=== PATIENT | male | born 1960 | race Caucasian/White ===

== ENCOUNTER 2017-03-05 13:27 | Emergency (ER) | payer OTHER ==
[2017-03-05 13:44] VITALS: RESP 18; TEMP 98.3
--- NOTE | 2017-03-05 14:12 | XR ---
EXAMINATION TYPE: XR ankle complete LT DATE OF EXAM: 03/05/2017 CLINICAL HISTORY: Rolling injury with pain. TECHNIQUE: Frontal, lateral and oblique images of the left ankle are obtained. COMPARISON: None. FINDINGS: There is acute comminuted nondisplaced fracture through the lateral malleolus as there gen ears to be oblique and transverse component. The medial and posterior malleoli are intact. The ankle mortise appears within normal limits. Moderate associated soft tissue swelling laterally is noted. IMPRESSION: There is acute comminuted nondisplaced fracture through the lateral malleolus. (Initial encounter closed type post traumatic fracture)
--- NOTE | 2017-03-05 14:28 | ED ---
Lower Extremity Injury HPI - General Chief Complaint: Extremity Injury, Lower Stated Complaint: L ankle injury Time Seen by Provider: 03/05/17 13:54 Source: patient, RN notes reviewed Mode of arrival: ambulatory Limitations: no limitations - History of Present Illness Initial Comments: 56-year-old male presents emergency Department chief complaint left ankle injury. Patient states he rolled his ankle on Saturday night. Patient states that since sure why he still able to ambulate. Patient complains of swelling. States he had no prior injuries to his left ankle multiple other fractures. Patient currently sees Dr. Gilmore. Denies any paresthesias no proximal leg pain or any knee pain. - Related Data Home Medications Medication Instructions Recorded Confirmed Ibuprofen [Motrin] 800 mg PO Q8HR PRN 12/26/14 03/05/17 Multivit-Min/FA/Lycopen/Lutein 1 tab PO DAILY 03/05/17 03/05/17 [Centrum Silver Men Tablet] Omeprazole 20 mg PO DAILY 03/05/17 03/05/17 Allergies Allergy/AdvReac Type Severity Reaction Status Date / Time No Known Allergies Allergy Verified 03/05/17 13:59 Review of Systems ROS Statement: Those systems with pertinent positive or pertinent negative responses have been documented in the HPI. ROS Other: All systems not noted in ROS Statement are negative. Past Medical History Past Medical History: GERD/Reflux, Hypertension Additional Past Medical History / Comment(s): hiatal hernia, KIDNEY STONES, History of Any Multi-Drug Resistant Organisms: MRSA Date of last positivie culture/infection: 2014 MDRO Source:: leg Past Surgical History: Orthopedic Surgery Additional Past Surgical History / Comment(s): right ankle PINS, right knee DEBRIDMENT, left thumb, BABY FINGER RT HAND SX REPAIRED Past Anesthesia/Blood Transfusion Reactions: No Reported Reaction Additional Past Anesthesia/Blood Transfusion Reaction / Comment(s): VERTIGO Past Psychological History: Anxiety Smoking Status: Current every day smoker Past Alcohol Use History: Daily Past Drug Use History: None Reported - Past Family History Father Family Medical History: Cancer, Myocardial Infarction ([place]) Additional Family Medical History / Comment(s): BLADDER, CARDIAC STENTS THEN CABG Mother Family Medical History: Cancer Additional Family Medical History / Comment(s): HEART VALVE REPAIR, COLON CA General Exam Limitations: no limitations General appearance: alert, in no apparent distress Head exam: Present: atraumatic, normocephalic, normal inspection Respiratory exam: Present: normal lung sounds bilaterally. Absent: respiratory distress, wheezes, rales, rhonchi, stridor Cardiovascular Exam: Present: regular rate, normal rhythm, normal heart sounds. Absent: systolic murmur, diastolic murmur, rubs, gallop, clicks Extremities exam: Present: other (Left ankle there is moderate lateral malleolus tenderness moderate swelling neurovascular intact some ecchymosis noted) Neurological exam: Present: alert, oriented X3, CN II-XII intact, reflexes normal. Absent: motor sensory deficit Course Vital Signs 03/05/17 13:42 Temperature 98.3 F Pulse Rate 74 Respiratory 18 Rate Blood Pressure 192/99 O2 Sat by Pulse 97 Oximetry Procedures - Orthopedic Splinting/Casting Injury #1 Side: left Lower Extremity Injury Location: ankle Lower Extremity Immobilizer: posterior splint (Short leg neurovascular intact before and after procedures) Other Orthopedic Equipment: crutches Medical Decision Making - Medical Decision Making 56-year-old male presented emergency tomorrow for fall, left ankle injury. Patient has acute lateral malleolus fracture. He was splinted and will follow- up with his orthopedic doctor Dr. Gilmore. Disposition Clinical Impression: Closed left ankle fracture Disposition: HOME SELF-CARE Condition: Stable Instructions: Ankle Fracture (ED) Additional Instructions: Please return to the Emergency Department if symptoms worsen or any other concerns. Referrals: Jenna Gooden MD [Primary Care Provider] - 1-2 days Ge Gilmore DO [Doctor of Osteopathic Medicine] - 1-2 days Time of Disposition: 14:28
[2017-03-05 15:29] VITALS: BP 176/102; PULSE 71
== END 2017-03-05 15:28 | disposition home or self-care (01) ==
LOC: EC 13:27
DX: S82.62XA Displaced fracture of lateral malleolus of left fibula, initial encounter for closed fracture (principal); K21.9 Gastro-esophageal reflux disease without esophagitis; F17.200 Nicotine dependence, unspecified, uncomplicated; Z98.890 Other specified postprocedural states; Z79.899 Other long term (current) drug therapy; X50.9XXA Other and unspecified overexertion or strenuous movements or postures, initial encounter
CPT/HCPCS: 29515; 99283

== ENCOUNTER 2019-07-02 19:26 | Emergency (ER) | payer OTHER ==
[2019-07-02 19:35] VITALS: TEMP 98.4
--- NOTE | 2019-07-02 20:06 | ED ---
SOB HPI - General Chief Complaint: Shortness of Breath Stated Complaint: VANNA, Facial numbness, chest pressure Time Seen by Provider: 07/02/19 20:00 Source: patient, RN notes reviewed, old records reviewed Mode of arrival: ambulatory Limitations: no limitations - History of Present Illness Initial Comments: This is a 59-year-old male here for evaluation patient has a fevers or shortness of breath history of smoking with no formal diagnosis of COPD. Patient admitted to some shortness with anxiety prior to arrival with numbness and tingling of his hands. States SYMPTOMS are resolved he does have history of high blood pressure history of smoking no history of heart evaluation or no significant history of heart disease. Patient has no chest pain now had pain earlier jimmy LOMBARDI Complaint: shortness of breath, cough -: minutes(s) Severity: moderate Severity scale (1-10): 4 Quality: other (no pain) Consistency: constant, now resolved Improves With: nothing Worsens With: nothing Known History Of: COPD Context: recent URI Associated Symptoms: cough, sputum production Treatments Prior to Arrival: none - Related Data Home Medications Medication Instructions Recorded Confirmed Ibuprofen [Motrin] 800 mg PO Q8HR PRN 12/26/14 03/05/17 Multivit-Min/FA/Lycopen/Lutein 1 tab PO DAILY 03/05/17 03/05/17 [Centrum Silver Men Tablet] Omeprazole 20 mg PO DAILY 03/05/17 03/05/17 Previous Rx's Medication Instructions Recorded Albuterol Sulfate [Proair Hfa] 1 - 2 puff INHALATION Q4H PRN #1 07/02/19 inhaler Azithromycin [Zithromax Z-pack] 0 mg PO DIRECTED #1 pack 07/02/19 predniSONE 50 mg PO DAILY #5 tab 07/02/19 Allergies Allergy/AdvReac Type Severity Reaction Status Date / Time No Known Allergies Allergy Verified 07/02/19 19:32 Review of Systems ROS Statement: Those systems with pertinent positive or pertinent negative responses have been documented in the HPI. ROS Other: All systems not noted in ROS Statement are negative. Past Medical History Past Medical History: GERD/Reflux, Hypertension Additional Past Medical History / Comment(s): hiatal hernia, KIDNEY STONES, History of Any Multi-Drug Resistant Organisms: MRSA Date of last positivie culture/infection: 2014 MDRO Source:: leg Past Surgical History: Orthopedic Surgery Additional Past Surgical History / Comment(s): right ankle PINS, right knee DEBRIDMENT, left thumb, BABY FINGER RT HAND SX REPAIRED Past Anesthesia/Blood Transfusion Reactions: No Reported Reaction Additional Past Anesthesia/Blood Transfusion Reaction / Comment(s): VERTIGO Past Psychological History: Anxiety Smoking Status: Current every day smoker Past Alcohol Use History: Daily Past Drug Use History: None Reported - Past Family History Father Family Medical History: Cancer, Myocardial Infarction ([place]) Additional Family Medical History / Comment(s): BLADDER, CARDIAC STENTS THEN CABG Mother Family Medical History: Cancer Additional Family Medical History / Comment(s): HEART VALVE REPAIR, COLON CA General Exam Limitations: no limitations General appearance: alert, in no apparent distress Head exam: Present: atraumatic, normocephalic, normal inspection Eye exam: Present: normal appearance, PERRL, EOMI. Absent: scleral icterus, conjunctival injection, periorbital swelling ENT exam: Present: normal exam, mucous membranes moist Neck exam: Present: normal inspection. Absent: tenderness, meningismus, lymphadenopathy Respiratory exam: Present: normal lung sounds bilaterally, wheezes. Absent: respiratory distress, rales, rhonchi, stridor Cardiovascular Exam: Present: regular rate, normal rhythm, normal heart sounds. Absent: systolic murmur, diastolic murmur, rubs, gallop, clicks GI/Abdominal exam: Present: soft, normal bowel sounds. Absent: distended, tenderness, guarding, rebound, rigid Extremities exam: Present: normal inspection, full ROM, normal capillary refill. Absent: tenderness, pedal edema, joint swelling, calf tenderness Back exam: Present: normal inspection Neurological exam: Present: alert, oriented X3, CN II-XII intact Psychiatric exam: Present: normal affect, normal mood Skin exam: Present: warm, dry, intact, normal color. Absent: rash Course Vital Signs 07/02/19 07/02/19 07/02/19 19:30 21:04 21:26 Temperature 98.4 F Pulse Rate 79 71 73 Respiratory 20 18 18 Rate Blood Pressure 143/81 O2 Sat by Pulse 99 Oximetry - Reevaluation(s) Reevaluation #1: 07/02/19 21:58 Medical record is reviewed Reevaluation #2: 07/02/19 22:00 His breathing is significantly improved feels comfortable discharge Medical Decision Making - Medical Decision Making 59 mL the ER for earlier for evaluation of anxiety episode shortness of breath is improved here in the ER with no distress. Patient is a smoker encouraged to quit smoking x-rays negative lab work is normal with EKG is normal. Patient can be discharged home - Lab Data Result diagrams: 07/02/19 19:49 07/02/19 19:49 Lab Results 07/02/19 07/02/19 07/02/19 Range/Units 19:49 19:49 19:49 WBC 5.8 (3.8-10.6) k/uL RBC 4.62 (4.30-5.90) m/uL Hgb 14.5 (13.0-17.5) gm/dL Hct 43.3 (39.0-53.0) % MCV 93.7 (80.0-100.0) fL MCH 31.3 (25.0-35.0) pg MCHC 33.4 (31.0-37.0) g/dL RDW 12.3 (11.5-15.5) % Plt Count 105 L (150-450) k/uL Neutrophils % 54 % Lymphocytes % 34 % Monocytes % 7 % Eosinophils % 2 % Basophils % 0 % Neutrophils # 3.1 (1.3-7.7) k/uL Lymphocytes # 2.0 (1.0-4.8) k/uL Monocytes # 0.4 (0-1.0) k/uL Eosinophils # 0.1 (0-0.7) k/uL Basophils # 0.0 (0-0.2) k/uL PT (9.0-12.0) sec INR (<1.2) APTT (22.0-30.0) sec Sodium 137 (137-145) mmol/L Potassium 3.7 (3.5-5.1) mmol/L Chloride 101 (98-107) mmol/L Carbon Dioxide 25 (22-30) mmol/L Anion Gap 11 mmol/L BUN 14 (9-20) mg/dL Creatinine 0.87 (0.66-1.25) mg/dL Est GFR (CKD-EPI)AfAm >90 (>60 ml/min/1.73 sqM) Est GFR (CKD-EPI)NonAf >90 (>60 ml/min/1.73 sqM) Glucose 81 (74-99) mg/dL Calcium 9.1 (8.4-10.2) mg/dL Magnesium 2.2 (1.6-2.3) mg/dL Total Bilirubin 1.0 (0.2-1.3) mg/dL AST 53 (17-59) U/L ALT 72 (21-72) U/L Alkaline Phosphatase 49 (38-126) U/L Troponin I (0.000-0.034) ng/mL NT-Pro-B Natriuret Pep 112 pg/mL Total Protein 6.9 (6.3-8.2) g/dL Albumin 4.4 (3.5-5.0) g/dL 07/02/19 07/02/19 Range/Units 19:49 19:49 WBC (3.8-10.6) k/uL RBC (4.30-5.90) m/uL Hgb (13.0-17.5) gm/dL Hct (39.0-53.0) % MCV (80.0-100.0) fL MCH (25.0-35.0) pg MCHC (31.0-37.0) g/dL RDW (11.5-15.5) % Plt Count (150-450) k/uL Neutrophils % % Lymphocytes % % Monocytes % % Eosinophils % % Basophils % % Neutrophils # (1.3-7.7) k/uL Lymphocytes # (1.0-4.8) k/uL Monocytes # (0-1.0) k/uL Eosinophils # (0-0.7) k/uL Basophils # (0-0.2) k/uL PT 9.4 (9.0-12.0) sec INR 0.9 (<1.2) APTT 25.2 (22.0-30.0) sec Sodium (137-145) mmol/L Potassium (3.5-5.1) mmol/L Chloride (98-107) mmol/L Carbon Dioxide (22-30) mmol/L Anion Gap mmol/L BUN (9-20) mg/dL Creatinine (0.66-1.25) mg/dL Est GFR (CKD-EPI)AfAm (>60 ml/min/1.73 sqM) Est GFR (CKD-EPI)NonAf (>60 ml/min/1.73 sqM) Glucose (74-99) mg/dL Calcium (8.4-10.2) mg/dL Magnesium (1.6-2.3) mg/dL Total Bilirubin (0.2-1.3) mg/dL AST (17-59) U/L ALT (21-72) U/L Alkaline Phosphatase (38-126) U/L Troponin I <0.012 (0.000-0.034) ng/mL NT-Pro-B Natriuret Pep pg/mL Total Protein (6.3-8.2) g/dL Albumin (3.5-5.0) g/dL - EKG Data -: EKG Interpreted by Me (EKG shows sinus rhythm rate of 72, CT 142 QRS 9 4, QTC 431) - Radiology Data Radiology results: report reviewed (Chest x-rays negative for acute disease), image reviewed Disposition Clinical Impression: Acute exacerbation of chronic obstructive pulmonary disease, Anxiety Disposition: HOME SELF-CARE Condition: Good Instructions (If sedation given, give patient instructions): Acute Bronchitis (ED), Chronic Bronchitis (ED) Prescriptions: predniSONE 50 mg PO DAILY #5 tab Albuterol Sulfate [Proair Hfa] 1 - 2 puff INHALATION Q4H PRN #1 inhaler PRN Reason: Shortness Of Breath Azithromycin [Zithromax Z-pack] 0 mg PO DIRECTED #1 pack Is patient prescribed a controlled substance at d/c from ED?: No Referrals: Jenna Gooden MD [Primary Care Provider] - 1-2 days
[2019-07-02] MEDS ORDERED: IPRATROPIUM 0.5 MG/2.5 ML NEBU INHALATION STA (20:35)
[2019-07-02] MEDS ORDERED: ALBUTEROL NEBULIZED 2.5 MG/3 ML INHALATION STA (20:35)
[2019-07-02] MEDS ORDERED: methylPREDNISolone SOD SUCCI 125 MG/2 ML VIAL IV STA (20:35)
[2019-07-02 20:53] LABS: Basophils % (A) 0 %; Eosinophils # (A) 0.1 k/uL (0-0.7); Eosinophils % (A) 2 %; HCT 43.3 % (39.0-53.0); HGB 14.5 gm/dL (13.0-17.5); Lymphocytes % (A) 34 %; MCH 31.3 pg (25.0-35.0); MCHC 33.4 g/dL (31.0-37.0); MCV 93.7 fL (80.0-100.0); Mean Platelet Volume 10.4; Monocytes # (A) 0.4 k/uL (0-1.0); Monocytes % (A) 7 %; Neutrophils # (A) 3.1 k/uL (1.3-7.7); Neutrophils % (A) 54 %; Platelet Count 105 k/uL (150-450); RBC 4.62 m/uL (4.30-5.90); RDW 12.3 % (11.5-15.5); WBC 5.8 k/uL (3.8-10.6)
[2019-07-02 21:03] LABS: ALT 72 U/L (21-72); AST 53 U/L (17-59); African American GFR (CKD) >90 (>60 ml/min/1.73 sqM); Albumin 4.4 g/dL (3.5-5.0); Alkaline Phosphatase 49 U/L (38-126); Anion Gap 11 mmol/L; Blood Urea Nitrogen 14 mg/dL (9-20); Calcium 9.1 mg/dL (8.4-10.2); Carbon Dioxide 25 mmol/L (22-30); Chloride 101 mmol/L (98-107); Glucose 81 mg/dL (74-99); Magnesium 2.2 mg/dL (1.6-2.3); Non-African American GFR(CKD) >90 (>60 ml/min/1.73 sqM); Potassium 3.7 mmol/L (3.5-5.1); Sodium 137 mmol/L (137-145); Total Protein 6.9 g/dL (6.3-8.2)
[2019-07-02 21:08] LABS: INR 0.9 (<1.2); Partial Thromboplastin Time 25.2 sec (22.0-30.0); Prothrombin Time 9.4 sec (9.0-12.0)
[2019-07-02 21:27] VITALS: PULSE 73
--- NOTE | 2019-07-02 21:55 | XR ---
EXAMINATION: XR chest 2V DATE AND TIME: 07/02/2019 9:40 PM CLINICAL INDICATION: PHH; difficulty breathing TECHNIQUE: Departmental protocol COMPARISON: 12/10/2014 FINDINGS: The lungs are clear. The pleural spaces are negative. The cardiac silhouette is not enlarged, and the remainder of the mediastinal silhouette is unremarkab le. The skeletal structures and soft tissues are negative for acute findings. Remote left midclavicular fracture is demonstrated. IMPRESSION: NO ACUTE PROCESS.
[2019-07-02 22:10] VITALS: BP 128/81; RESP 16
== END 2019-07-02 22:29 | disposition home or self-care (01) ==
LOC: EC 19:26
DX: J44.1 Chronic obstructive pulmonary disease with (acute) exacerbation (principal); F41.9 Anxiety disorder, unspecified; K21.9 Gastro-esophageal reflux disease without esophagitis; I10 Essential (primary) hypertension; F17.200 Nicotine dependence, unspecified, uncomplicated; Z71.6 Tobacco abuse counseling; Z79.899 Other long term (current) drug therapy; Z86.14 Personal history of Methicillin resistant Staphylococcus aureus infection
CPT/HCPCS: 36415; 94640; 83880; 80053; 83735; 84484; 85025; 85610; 85730; 71046; 99285; 96374; J2930

== ENCOUNTER 2025-01-14 15:39 | Inpatient (IN) | payer OTHER ==
--- NOTE | 2025-01-14 16:44 | ED ---
General Adult HPI - General Source: patient, RN notes reviewed Mode of arrival: ambulatory Limitations: no limitations - History of Present Illness Onset/Timin -: week(s) Location: chest, back, abdomen Severity scale (1-10): 9 Consistency: constant Worsens with: movement, other (Inhalation) Associated Symptoms: chest pain, shortness of breath Treatments Prior to Arrival: NSAID <Perez Izaguirre - Last Filed: 01/14/25 19:51> <Heather Gaspar - Last Filed: 01/14/25 21:41> - General Chief complaint: Back Pain/Injury Stated complaint: Mid/Low Back Pain Time Seen by Provider: 01/14/25 15:57 - History of Present Illness Initial comments: This is a 64-year-old male with history including GERD, hypertension, hiatal hernia and kidney stone presenting for mid back pain (04/07) x 2 weeks. Patient states intermittent aching/shooting pain radiates to his bilateral flanks and chest with associated shortness of breath with pain worsening with inspiration. Patient endorses heavy lifting prior to start of symptoms endorses history of back trauma and smoking. Endorses both mother and father have cardiac history in their 60s/70s. Denies family history of aneurysms or personal history of kidney stones. Denies fever, chills, hemoptysis, radiculopathy, N/V/D, dysuria, hematuria. (Perez Izaguirre) - Related Data Home Medications Medication Instructions Recorded Confirmed Ibuprofen [Motrin] 800 mg PO Q8HR PRN 12/26/14 03/05/17 Mv-Min/Folic/K1/Lycopen/Lutein 1 tab PO DAILY 03/05/17 03/05/17 [Centrum Silver Men Tablet] Omeprazole 20 mg PO DAILY 03/05/17 03/05/17 Previous Rx's Medication Instructions Recorded Albuterol Sulfate [Proair Hfa] 1 - 2 puff INHALATION Q4H PRN #1 07/02/19 inhaler Azithromycin [Zithromax Z-pack (6 0 mg PO DIRECTED #1 pack 07/02/19 tabs)] predniSONE 50 mg PO DAILY #5 tab 07/02/19 Allergies Allergy/AdvReac Type Severity Reaction Status Date / Time No Known Allergies Allergy Verified 01/14/25 15:53 Review of Systems ROS Other: All systems not noted in ROS Statement are negative. <ZinaPerez - Last Filed: 01/14/25 19:51> ROS Other: All systems not noted in ROS Statement are negative. <Heather Gaspar - Last Filed: 01/14/25 21:41> ROS Statement: Those systems with pertinent positive or pertinent negative responses have been documented in the HPI. Past Medical History Past Medical History: GERD/Reflux, Hypertension Additional Past Medical History / Comment(s): hiatal hernia, KIDNEY STONES, History of Any Multi-Drug Resistant Organisms: MRSA Date of last positivie culture/infection: 2014 MDRO Source:: leg Past Surgical History: Orthopedic Surgery Additional Past Surgical History / Comment(s): right ankle PINS, right knee DEBRIDMENT, left thumb, BABY FINGER RT HAND SX REPAIRED Past Anesthesia/Blood Transfusion Reactions: No Reported Reaction Additional Past Anesthesia/Blood Transfusion Reaction / Comment(s): VERTIGO Past Psychological History: Anxiety Smoking Status: Current every day smoker Past Alcohol Use History: Daily Past Drug Use History: Marijuana - Past Family History Father Family Medical History: Cancer, Myocardial Infarction ([place]) Additional Family Medical History / Comment(s): BLADDER, CARDIAC STENTS THEN CABG Mother Family Medical History: Cancer Additional Family Medical History / Comment(s): HEART VALVE REPAIR, COLON CA <Perez Izaguirre - Last Filed: 01/14/25 19:51> General Exam Limitations: no limitations General appearance: alert, in no apparent distress Head exam: Present: atraumatic, normocephalic, normal inspection Eye exam: Present: normal appearance, PERRL, EOMI. Absent: scleral icterus, conjunctival injection, periorbital swelling ENT exam: Present: normal exam, mucous membranes moist Neck exam: Present: normal inspection. Absent: tenderness, meningismus, lymphadenopathy Respiratory exam: Present: wheezes (Mild wheezing auscultated in all lobes of right lung). Absent: respiratory distress, rales, rhonchi, stridor, accessory muscle use, decreased breath sounds, prolonged expiratory Cardiovascular Exam: Present: regular rate, normal rhythm, normal heart sounds. Absent: systolic murmur, diastolic murmur, rubs, gallop, clicks GI/Abdominal exam: Present: soft, normal bowel sounds. Absent: distended, tenderness, guarding, rebound, rigid Extremities exam: Present: normal inspection, full ROM, normal capillary refill. Absent: tenderness, pedal edema, joint swelling, calf tenderness Back exam: Present: normal inspection. Absent: CVA tenderness (R), CVA tenderness (L), paraspinal tenderness, vertebral tenderness Neurological exam: Present: alert, oriented X3, CN II-XII intact Psychiatric exam: Present: normal affect, normal mood Skin exam: Present: warm, dry, intact, normal color. Absent: rash <Perez Izaguirre - Last Filed: 01/14/25 19:51> Course Vital Signs 01/14/25 01/14/25 01/14/25 15:50 17:00 18:25 Temperature 97.6 F Pulse Rate 81 75 72 Respiratory 20 16 14 Rate Blood Pressure 164/92 123/84 144/77 O2 Sat by Pulse 95 99 98 Oximetry 01/14/25 01/14/25 01/14/25 19:35 20:59 21:28 Temperature 97.7 F Pulse Rate 68 70 Respiratory 18 Rate Blood Pressure 152/96 153/86 O2 Sat by Pulse 98 Oximetry Medical Decision Making - Lab Data Result diagrams: 01/14/25 16:55 01/14/25 16:55 <Perez Izaguirre - Last Filed: 01/14/25 19:51> - Lab Data Result diagrams: 01/14/25 16:55 01/14/25 16:55 - Radiology Data Radiology results: report reviewed, image reviewed <Heather Gaspar - Last Filed: 01/14/25 21:41> - Medical Decision Making Was pt. sent in by a medical professional or institution ([facility], BUSINESS DEPARTMENT CHAIR, urgent care, hospital, or senior care...) When possible be specific @ -[No] Did you speak to anyone other than the patient for history (EMS, parent, family, police, friend...)? What history was obtained from this source @ -[No] Did you review nursing and triage notes (agree or disagree)? Why? @ -[I reviewed and agree with nursing and triage notes] Were old charts reviewed (outside hosp., previous admission, EMS record, old EKG, old radiological studies, urgent care reports/EKG's, senior care records)? Report findings @ -[No old charts were reviewed] Differential Diagnosis (chest pain, altered mental status, abdominal pain women, abdominal pain men, vaginal bleeding, weakness, fever, dyspnea, syncope, headache, dizziness, GI bleed, back pain, seizure, CVA, palpatations, mental health, musculoskeletal)? @ -Differential Back Pain: Strain, zoster, cauda equina syndrome, epidural abscess, vertebral osteomyelitis, discitis, fracture, subluxation, disc herniation, DJD, spinal stenosis, dissection, AAA, pancreatitis, peptic ulcer disease, pyelonephritis, kidney stone, this is not meant to be an all-inclusive list. Differential Dyspnea: Coronary syndrome, arrhythmia, tamponade, asthma, COPD, pulmonary embolism, pneumonia, pneumothorax, pulmonary effusion, anaphylaxis, diabetic ketoacidosis, flailed chest, pulmonary contusion, diaphragmatic rupture, anemia, neuromuscular, this is not meant to be an all-inclusive list. EKG interpreted by me (3pts min.). @ -Sinus rhythm with RBBB. No ST deviation T wave inversion. Ventricular rate 66 bpm, LISA 145 ms, QRS 131 ms, QTc 422 ms. X-rays interpreted by me (1pt min.). @ -[None done] CT interpreted by me (1pt min.). @ -CT chest, AP pending U/S interpreted by me (1pt. min.). @ -[None done] What testing was considered but not performed or refused? (CT, X-rays, U/S, labs)? Why? @ -[None] What meds were considered but not given or refused? Why? @ -[None] Did you discuss the management of the patient with other professionals (professionals i.e. , PA, BUSINESS DEPARTMENT CHAIR, lab, RT, psych nurse, psychosocial rehabilitation counselor, medtronics technician, teacher, global chief creative officer, piano case maker)? Give summary @ -[No] Was smoking cessation discussed for >3mins.? @ -[No] Was critical care preformed (if so, how long)? @ -[No] Were there social determinants of health that impacted care today? How? (Homelessness, low income, unemployed, alcoholism, drug addiction, transportation, low edu. Level, literacy, decrease access to med. care, [facility], rehab)? @ -[No] Was there de-escalation of care discussed even if they declined (Discuss DNR or withdrawal of care, Hospice)? DNR status @ -[No] What co-morbidities impacted this encounter? (DM, HTN, Smoking, COPD, CAD, Cancer, CVA, ARF, Chemo, Hep., AIDS, mental health diagnosis, sleep apnea, morbid obesity)? @ -[None] Was patient admitted / discharged? Hospital course, mention meds given and route, prescriptions, significant lab abnormalities, going to OR and other pertinent info. @ -[hospital course] Undiagnosed new problem with uncertain prognosis? @ -[No] Drug Therapy requiring intensive monitoring for toxicity (Heparin, Nitro, Insulin, Cardizem)? @ -[No] Were any procedures done? @ -[No] Diagnosis/symptom? @ -Elevated D-dimer, CT results pending Acute, or Chronic, or Acute on Chronic? @ -Acute Uncomplicated (without systemic symptoms) or Complicated (systemic symptoms)? @ -Complicated Side effects of treatment? @ -[No] Exacerbation, Progression, or Severe Exacerbation? @ -[No] Poses a threat to life or bodily function? How? (Chest pain, [place], [place], pneumonia, PE, COPD, DKA, ARF, appy, cholecystitis, CVA, Diverticulitis, Homicidal, Suicidal, threat to staff... and all critical care pts) @ -[No] (Perez Izaguirre) Case signed out to me by Perez Izaguirre PA-C, at shift completion pending CT scan results and disposition. Lab work had returned demonstrating an elevated D-dimer 7.86 and was otherwise unremarkable. Urinalysis was negative for signs of infection. CTA of the chest and CT scan of the abdomen and pelvis both revealed concern for metastatic disease from unknown origin with multiple enlarged/prominent lymph nodes and diffuse sclerotic osseous lesions. No evidence of a pulmonary embolus was identified. Findings were reviewed with the patient. We discussed admission versus discharge home with close follow-up, however patient advised that he was still in a lot of pain and was concerned about managing this at home. There was also concern that with the potential advanced nature of this illness he will need close follow-up. Patient admitted to medicine for intractable pain with consult to hem/onc for further evaluation of CT scan findings. Case discussed with ED attending Dr. Carl. (Heather Gaspar) - Lab Data Lab Results 01/14/25 01/14/25 01/14/25 Range/Units 16:55 16:55 16:55 WBC 4.89 (4.50-10.00) 10*3/uL RBC 5.13 (4.40-5.60) 10*6/uL Hgb 14.8 (13.0-17.0) g/dL Hct 44.4 (39.6-50.0) % MCV 86.5 (80.0-97.0) fL MCH 28.8 (27.0-32.0) pg MCHC 33.3 (32.0-37.0) g/dL Plt Count 160 (140-440) 10*3/uL MPV 10.6 (9.5-12.2) fL Immature Gran % (Auto) 1.4 % Neutrophils % 57.2 % Lymphocytes % 29.0 % Monocytes % 9.4 % Eosinophils % 2.2 % Basophils % 0.8 % Immature Gran # 0.07 H (0.00-0.04) 10*3/uL Neutrophils # 2.79 (1.80-7.70) 10*3/uL Lymphocytes # 1.42 (0.90-5.00) 10*3/uL Monocytes # 0.46 (0.20-1.00) 10*3/uL Eosinophils # 0.11 (0.04-0.35) 10*3/uL Basophils # 0.04 (0.00-0.10) 10*3/uL PT 10.7 (10.0-12.5) sec INR 1.0 (<1.2) APTT 23.7 (22.0-30.0) sec D-Dimer 7.86 H (<0.60) mg/L FEU Sodium (137-145) mmol/L Potassium (3.5-5.1) mmol/L Chloride (98-107) mmol/L Carbon Dioxide (22-30) mmol/L Anion Gap mmol/L BUN (9-20) mg/dL Creatinine (0.66-1.25) mg/dL Est GFR (CKD-EPI)AfAm (>60 ml/min/1.73 sqM) Est GFR (CKD-EPI)NonAf (>60 ml/min/1.73 sqM) Glucose (74-99) mg/dL Calcium (8.4-10.2) mg/dL Magnesium (1.6-2.3) mg/dL Total Bilirubin (0.2-1.3) mg/dL AST (17-59) U/L ALT (4-49) U/L Alkaline Phosphatase (38-126) U/L Troponin I (0.000-0.034) ng/mL Total Protein (6.3-8.2) g/dL Albumin (3.5-5.0) g/dL Urine Color Colorless Urine Appearance Clear (Clear) Urine pH 6.0 (5.0-8.0) Ur Specific [place] 1.008 (1.001-1.035) Urine Protein Negative (Negative) Urine Glucose (UA) Negative (Negative) Urine Ketones Negative (Negative) Urine Blood Negative (Negative) Urine Nitrite Negative (Negative) Urine Bilirubin Negative (Negative) Urine Urobilinogen <2.0 (<2.0) mg/dL Ur Leukocyte Esterase Negative (Negative) 01/14/25 01/14/25 Range/Units 16:55 16:55 WBC (4.50-10.00) 10*3/uL RBC (4.40-5.60) 10*6/uL Hgb (13.0-17.0) g/dL Hct (39.6-50.0) % MCV (80.0-97.0) fL MCH (27.0-32.0) pg MCHC (32.0-37.0) g/dL Plt Count (140-440) 10*3/uL MPV (9.5-12.2) fL Immature Gran % (Auto) % Neutrophils % % Lymphocytes % % Monocytes % % Eosinophils % % Basophils % % Immature Gran # (0.00-0.04) 10*3/uL Neutrophils # (1.80-7.70) 10*3/uL Lymphocytes # (0.90-5.00) 10*3/uL Monocytes # (0.20-1.00) 10*3/uL Eosinophils # (0.04-0.35) 10*3/uL Basophils # (0.00-0.10) 10*3/uL PT (10.0-12.5) sec INR (<1.2) APTT (22.0-30.0) sec D-Dimer (<0.60) mg/L FEU Sodium 135 L (137-145) mmol/L Potassium 4.7 (3.5-5.1) mmol/L Chloride 105 (98-107) mmol/L Carbon Dioxide 24 (22-30) mmol/L Anion Gap 6 mmol/L BUN 12 (9-20) mg/dL Creatinine 0.64 L (0.66-1.25) mg/dL Est GFR (CKD-EPI)AfAm >90 (>60 ml/min/1.73 sqM) Est GFR (CKD-EPI)NonAf >90 (>60 ml/min/1.73 sqM) Glucose 103 H (74-99) mg/dL Calcium 9.0 (8.4-10.2) mg/dL Magnesium 1.9 (1.6-2.3) mg/dL Total Bilirubin 0.6 (0.2-1.3) mg/dL AST 48 (17-59) U/L ALT 20 (4-49) U/L Alkaline Phosphatase 378 H (38-126) U/L Troponin I <0.012 (0.000-0.034) ng/mL Total Protein 6.4 (6.3-8.2) g/dL Albumin 3.8 (3.5-5.0) g/dL Urine Color Urine Appearance (Clear) Urine pH (5.0-8.0) Ur Specific [place] (1.001-1.035) Urine Protein (Negative) Urine Glucose (UA) (Negative) Urine Ketones (Negative) Urine Blood (Negative) Urine Nitrite (Negative) Urine Bilirubin (Negative) Urine Urobilinogen (<2.0) mg/dL Ur Leukocyte Esterase (Negative) Disposition <Perez Izaguirre - Last Filed: 01/14/25 19:51> <Heather Gaspar - Last Filed: 01/14/25 21:41> Clinical Impression: Intractable pain, Metastatic disease, Lymph node enlargement, Neoplasm of bone Disposition: ADMITTED IP TO THIS HOSP Referrals: Jenna Gooden MD [Primary Care Provider] - 1-2 days
[2025-01-14] MEDS: MORPHINE SULFATE 4 MG/ML SYRINGE IVP STA ×2 (16:57→21:16)
[2025-01-14 17:00] LABS: Basophils # (A) 0.04 10*3/uL (0.00-0.10); Basophils % (A) 0.8 %; Eosinophils # (A) 0.11 10*3/uL (0.04-0.35); Eosinophils % (A) 2.2 %; HCT 44.4 % (39.6-50.0); HGB 14.8 g/dL (13.0-17.0); Lymphocytes # (A) 1.42 10*3/uL (0.90-5.00); MCH 28.8 pg (27.0-32.0); MCHC 33.3 g/dL (32.0-37.0); MCV 86.5 fL (80.0-97.0); Mean Platelet Volume 10.6 fL (9.5-12.2); Monocytes # (A) 0.46 10*3/uL (0.20-1.00); Monocytes % (A) 9.4 %; Neutrophils # (A) 2.79 10*3/uL (1.80-7.70); Neutrophils % (A) 57.2 %; Platelet Count 160 10*3/uL (140-440); RBC 5.13 10*6/uL (4.40-5.60); RDW 12.7 % (11.5-14.5); WBC 4.89 10*3/uL (4.50-10.00)
[2025-01-14] MEDS: SODIUM CHLORIDE 0.9% 1,000 ML IV STA ×2 (17:00→18:16)
[2025-01-14 17:12] LABS: Appearance,Urine Clear (Clear); Bilirubin,Urine Negative (Negative); Blood,Urine Negative (Negative); Color,Urine Colorless; Glucose,Urine (UA) Negative (Negative); Ketones,Urine Negative (Negative); Leukocyte Esterase,Urine Negative (Negative); Nitrite,Urine Negative (Negative); Protein,Urine Negative (Negative); Specific Gravity,Urine 1.008 (1.001-1.035); Urobilinogen,Urine <2.0 mg/dL (<2.0)
[2025-01-14 17:24] LABS: ALT 20 U/L (4-49); AST 48 U/L (17-59); African American GFR (CKD) >90 (>60 ml/min/1.73 sqM); Albumin 3.8 g/dL (3.5-5.0); Alkaline Phosphatase 378 U/L (38-126); Anion Gap 6 mmol/L; Blood Urea Nitrogen 12 mg/dL (9-20); Carbon Dioxide 24 mmol/L (22-30); Chloride 105 mmol/L (98-107); Glucose 103 mg/dL (74-99); Magnesium 1.9 mg/dL (1.6-2.3); Non-African American GFR(CKD) >90 (>60 ml/min/1.73 sqM); Potassium 4.7 mmol/L (3.5-5.1); Sodium 135 mmol/L (137-145); Total Bilirubin 0.6 mg/dL (0.2-1.3); Total Protein 6.4 g/dL (6.3-8.2)
--- NOTE | 2025-01-14 17:44 | XR ---
EXAMINATION TYPE: XR chest 2V DATE OF EXAM: 01/14/2025 5:38 PM COMPARISON: Chest radiographs from 07/02/2019 TECHNIQUE: XR chest 2V Frontal and lateral views of the chest. CLINICAL INDICATION:Male, 64 years old with history of Chest/back pain; FINDINGS: Lungs/Pleura: There is no evidence of pleural effusion, focal consolidation, or pneumothorax. Pulmonary vascularity: Unremarkable. Heart/mediastinum: Cardiomediastinal silhouette is unremarkable. Musculoskeletal: No acute osseous pathology. Remote fracture deformity of the mid left clavicle. IMPRESSION: No acute cardiopulmonary disease/process. [facility], , 01/14/2025 5:42 PM
[2025-01-14 17:54] LABS: Partial Thromboplastin Time 23.7 sec (22.0-30.0); Prothrombin Time 10.7 sec (10.0-12.5)
[2025-01-14] MEDS: HYDROmorphone 1 MG/ML 1 ML SYRINGE IVP STA (18:14)
--- NOTE | 2025-01-14 20:10 | CT ---
EXAMINATION TYPE: CT angio chest CT DLP: 509.9 mGycm, Automated exposure control for dose reduction was used. DATE OF EXAM: 01/14/2025 7:52 PM COMPARISON: Chest radiograph from same day. CLINICAL INDICATION:Male, 64 years old with history of Chest pain, shortness of breath, elevated D-di khushboo; pain TECHNIQUE/CONTRAST: CTA scan of the thorax is performed with IV Contrast, patient injected with 100 mL of Isovue 370, pul monary embolism protocol. MIP images are created and reviewed. FINDINGS: Pulmonary Artery: There is no evidence for a filling defect within the pulmonary vasculature to sugge st acute pulmonary embolism. The pulmonary artery is of normal size. Lungs/Pleura: No evidence of focal consolidation, pleural effusion or pneumothorax. Minimal bilateral lower lobe dependent subsegmental atelectasis. No suspicious pulmonary nodule or mass. Airway: Large airways are patent. Heart: Size within normal limits.No pericardial effusion Mild coronary artery calcifications present. Vasculature: No evidence of aortic aneurysm. Mild atherosclerotic calcification of the aorta and its branches. Mediastinum: No evidence of adenopathy. Musculoskeletal: No acute osseous abnormalities. Bilateral shoulder arthropathy. Diffuse sclerotic le sions of the osseous structures including the spine, ribs, and sternum Soft Tissues: Enlarged paraesophageal lymph nodes with largest measuring up to 1.9 cm. Lower neck: No significant findings. Upper Abdomen: Please refer to CT abdomen pelvis of the same day for findings. IMPRESSION: 1. No evidence of pulmonary embolism. 2. Diffuse osseous lesions highly concerning for metastatic disease of unknown primary. 3. Enlarged paraesophageal lymph nodes concerning for metastatic disease of unknown primary. [facility], , 01/14/2025 8:07 PM
--- NOTE | 2025-01-14 20:16 | CT ---
EXAMINATION TYPE: CT abdomen pelvis w con CT DLP: 1460 mGycm, Automated exposure control for dose reduction was used. DATE OF EXAM: 01/14/2025 7:54 PM COMPARISON: CTA chest of the same date CLINICAL INDICATION:Male, 64 years old with history of Elevated alk phos, LUQ, epigastric TTP; pain TECHNIQUE: Standard CT of the abdomen and pelvis following the administration of 100 cc of Isovue 3 00 IV contrast material. Coronal and sagittal reformats were performed. FINDINGS: LOWER CHEST: Please see dedicated CTA chest for findings ABDOMEN LIVER: Unremarkable GALLBLADDER AND BILE DUCTS: Unremarkable. PANCREAS: Unremarkable. SPLEEN: Unremarkable. ADRENAL GLANDS: Unremarkable. KIDNEYS AND URETERS: No evidence of hydronephrosis or renal calculus. The kidneys enhance symmetrical ly. Contrast is demonstrated within both collecting systems on the delayed phase. PELVIS BLADDER: Unremarkable REPRODUCTIVE: Coarse calcifications of the prostate gland are identified. ABDOMEN & PELVIS STOMACH AND BOWEL: The stomach appears relatively unremarkable. Distal duodenal diverticulum.Distal c olonic diverticulosis without evidence for acute diverticulitis. No focal bowel wall thickening or macias rrounding inflammatory changes identified. No evidence of bowel obstruction. PERITONEUM: No evidence of pneumoperitoneum or free fluid. Trace stranding within the bilateral lower retroperitoneum. VASCULATURE: Mild to moderate atherosclerotic calcifications are present throughout the abdominal aor ta and its branches. No evidence of aortic aneurysm. MUSCULOSKELETAL: No acute osseous abnormalities. Diffuse patchy sclerotic osseous lesions identified. These are seen throughout the spine and pelvic bones. Grade 2 anterolisthesis of L5 on S1 with bilat eral pars defects. Multilevel degenerative disc disease. LYMPH NODES: Enlarged paraesophageal lymph nodes measuring up to 1.8 cm (series 501, image 8). Multip le prominent and enlarged periaortic lymph nodes with a left paracolic lymph node measuring up to 2.5 cm (series 501, image 29). Enlarged bilateral external iliac chain lymph nodes with the left measuri ng up to 1.3 cm short axis (series 501, image 60). The right measures up to 1.3 cm short axis (series 501, image 59). Enlarged right perirectal lymph node measuring up to 1.2 cm (series 501, image 65). SOFT TISSUE/ABDOMINAL WALL: Tiny fat filled umbilical hernia. Patulous fat filled bilateral inguinal rings. IMPRESSION: 1. Findings highly concerning for metastatic disease from unknown primary malignancy with multiple e nlarged/prominent lymph nodes and diffuse sclerotic osseous lesions. Further workup is recommended. 2. Colonic diverticulosis without evidence for acute diverticulitis. [facility], , 01/14/2025 8:14 PM
[2025-01-14] MEDS: ONDANSETRON 4 MG/2 ML VIAL IVP STA (21:02)
[2025-01-14] MEDS: KETOROLAC 15 MG/ML 1 ML VIAL IVP STA (21:08)
[2025-01-14] MEDS ORDERED: HYDROcodone/APAP 5-325MG 1 EACH TAB PO PRN (21:09)
[2025-01-14] MEDS ORDERED: ACETAMINOPHEN TAB 325 MG TAB PO PRN (21:09)
[2025-01-14] MEDS ORDERED: NALOXONE 0.4 MG/ML 1 ML VIAL IV PRN (21:09)
[2025-01-14] MEDS: IPRATROPIUM-ALBUTEROL 3 ML NEB INHALATION STA (21:28)
[2025-01-15] MEDS: IBUPROFEN 400 MG TAB PO PRN (01:19)
[2025-01-15] MEDS: KETOROLAC 15 MG/ML 1 ML VIAL IVP PRN (02:52)
[2025-01-15] MEDS: PANTOPRAZOLE 40 MG/10 ML VIAL IV SCH (08:50)
[2025-01-15] MEDS: ONDANSETRON 4 MG/2 ML VIAL IVP PRN (11:01)
[2025-01-15] MEDS: LORazepam 0.5 MG TAB PO PRN (11:15)
--- NOTE | 2025-01-15 11:39 | P.HPIM ---
History of Present Illness H&P Date: 01/15/25 Dewey Velasquez is a 64-year-old male patient of Dr. Rabago who presented with complaints of intractable back pain ongoing for 3 months. Patient has a past medical history of GERD hypertension anxiety current everyday smoker 1 pack/day and drinks 6-7 8 beers per day. Upon arrival testing was done. Chest x-ray showing no acute cardiopulmonary disease or process. Patient was noted to have a significant elevated D-dimer so CTA was performed showing no evidence for pulmonary embolism but diffuse osseous lesions highly concerning for metastatic disease of unknown primary enlarged paraesophageal lymph nodes concerning for metastatic disease of unknown primary. Patient denies any history of cancer. Patient's family at bedside does report he has not followed up with a doctor in over a year and has had recent weight loss. Patient reports he does have a family history of father with bladder cancer and mother with colon cancer. CT of abdomen and pelvis completed showing findings highly concerning for metastatic disease from unknown primary malignancy with multiple enlarged prominent lymph nodes and diffuse sclerotic osseous lesions further recommendations colonic diverticulosis without evidence for acute diverticulitis. Lab work completed showing white blood cell 4.89, hemoglobin 14.8 D-dimer was elevated at 7.86 CTA was negative for PE, creatinine 0.64 bun 12 alkaline phosphatase 378. At this time patient will be admitted pain medication added along with Zofran for nausea. Oncology services consulted. Current vital signs temp 97.6, heart 64, respiratory rate 18, blood pressure 139/83 with a pulse ox of 96% on room air Review of Systems Please refer to HPI otherwise unremarkable Past Medical History Past Medical History: GERD/Reflux, Hypertension Additional Past Medical History / Comment(s): hiatal hernia History of Any Multi-Drug Resistant Organisms: None Reported Date of last positivie culture/infection: 2014 MDRO Source:: leg Past Surgical History: Orthopedic Surgery Additional Past Surgical History / Comment(s): right ankle PINS, right knee DE BRIDMENT, left thumb, BABY FINGER RT HAND SX REPAIRED Past Anesthesia/Blood Transfusion Reactions: No Reported Reaction Additional Past Anesthesia/Blood Transfusion Reaction / Comment(s): VERTIGO Past Psychological History: Anxiety Additional Psychological History / Comment(s): TAKES XANAX Smoking Status: Current every day smoker Past Alcohol Use History: Daily Additional Past Alcohol Use History / Comment(s): 1 PPD- STARTED SMOKING AT AGE 17. DRINKS 6-8 BEERS PER NIGHT but states he quit 3 days ago Past Drug Use History: Marijuana - Past Family History Father Family Medical History: Cancer, Myocardial Infarction ([place]) Additional Family Medical History / Comment(s): BLADDER, CARDIAC STENTS THEN CABG Mother Family Medical History: Cancer Additional Family Medical History / Comment(s): HEART VALVE REPAIR, COLON CA Medications and Allergies Home Medications Medication Instructions Recorded Confirmed Type Ibuprofen [Motrin] 800 mg PO Q8HR PRN 12/26/14 03/05/17 History Mv-Min/Folic/K1/Lycopen/Lutein 1 tab PO DAILY 03/05/17 03/05/17 History [Centrum Silver Men Tablet] Omeprazole 20 mg PO DAILY 03/05/17 03/05/17 History Albuterol Sulfate [Proair Hfa] 1 - 2 puff INHALATION Q4H PRN #1 07/02/19 Rx inhaler Azithromycin [Zithromax Z-pack (6 0 mg PO DIRECTED #1 pack 07/02/19 Rx tabs)] predniSONE 50 mg PO DAILY #5 tab 07/02/19 Rx Allergies Allergy/AdvReac Type Severity Reaction Status Date / Time No Known Allergies Allergy Verified 01/14/25 15:53 Physical Exam Vitals: Vital Signs Temp Pulse Pulse Resp BP BP Pulse Ox 01/15/25 08:00 97.6 F 69 20 171/95 99 01/15/25 02:00 97.6 F 64 18 139/83 96 01/15/25 01:05 97.9 F 71 18 153/92 97 01/14/25 22:00 136/73 01/14/25 21:49 72 01/14/25 21:28 70 01/14/25 20:59 68 18 153/86 98 01/14/25 19:35 97.7 F 152/96 01/14/25 18:25 72 14 144/77 98 01/14/25 17:00 75 16 123/84 99 01/14/25 15:50 97.6 F 81 20 164/92 95 Intake and Output 01/14/25 01/15/25 01/15/25 22:59 06:59 14:59 Other: Voiding Method Toilet Toilet # Voids 1 Weight 88.451 kg 88.451 kg Head normocephalic Neck supple Lungs clear to auscultation bilaterally no wheezing or crackles Heart regular rate and rhythm S1-S2, no rub or gallop Abdomen is soft nontender nondistended positive bowel sounds no hepatosplenomegaly Extremities no edema Neuro alert and orientated to 3 Results CBC & Chem 7: 01/14/25 16:55 01/14/25 16:55 Labs: Abnormal Lab Results - Last 24 Hours (Table) 01/14/25 01/14/25 01/14/25 Range/Units 16:55 16:55 16:55 Immature Gran # 0.07 H (0.00-0.04) 10*3/uL D-Dimer 7.86 H (<0.60) mg/L FEU Sodium 135 L (137-145) mmol/L Creatinine 0.64 L (0.66-1.25) mg/dL Glucose 103 H (74-99) mg/dL Alkaline Phosphatase 378 H (38-126) U/L Thrombosis Risk Factor Assmnt - Choose All That Apply Any of the Below Risk Factors Present?: Yes Each Factor Represents 1 point: Obesity (BMI >25) Each Risk Factor Represents 2 Points: Age 61-74 years Thrombosis Risk Factor Assessment Total Risk Factor Score: 3 Thrombosis Risk Factor Assessment Level: Moderate Risk Assessment and Plan Assessment: 1. Intractable back pain 2. Osseous lesions concerning for metastatic disease 3. Ongoing nicotine dependence patient reports he smokes greater than a pack per day nicotine patch will be ordered patient educated greater than 3 minutes on the importance of complete smoking sensation 4. EtOH abuse patient reports he is drink 6-8 beers per day 5. History of GERD 6. History of essential hypertension 7. History of anxiety DVT prophylaxis Lovenox. GI prophylax Protonix Pain medication added Zofran added for nausea Oncology services added for further workup Time with Patient: Greater than 30 (Greater than 60% of the total time spent in counseling and coordination of care)
[2025-01-15] MEDS ORDERED: hydrALAZINE HCL 20 MG/ML 1 ML VIAL IVP PRN (14:10)
--- NOTE | 2025-01-15 20:45 | US ---
EXAMINATION TYPE: US groin RT DATE OF EXAM: 01/15/2025 COMPARISON: NONE CLINICAL INDICATION: Male, 64 years old with history of palpable lymphadenopathy, eval for biopsy; pa lpable lymph node TECHNIQUE: several images taken at area of concern FINDINGS: area of concern corresponds to a 2.8x1.6x1.0cm lymph node at the right groin just inferior to the saphenofemoral junction. Fatty hilum with hilar flow retained. This area can also be visualized on 01/14/25 CT IMPRESSION: 1. Right inguinal lymph node [facility], , 01/15/2025 8:42 PM
--- NOTE | 2025-01-15 20:46 | US ---
EXAMINATION TYPE: US thyroid st tissue head/neck DATE OF EXAM: 01/15/2025 COMPARISON: NONE CLINICAL INDICATION: Male, 64 years old with history of right anterior cervical LAD, eval for biopsy; Right lymph node TECHNIQUE: Grayscale and color Doppler imaging of the area of interest FINDINGS: There is a solitary 2.8x1.0x1.9cm prominent lymph node just superior to the right clavicle. Heterogen eous echotexture with thin or absent fatty hilum and peripheral cortical flow on color doppler. Sonog raphic findings may be concerning for malignancy. Bx may be technically challenging due to location adjacent to jugular vein and clavicle, as well as m obility with respiration. IMPRESSION: Suspicious appearing nodule right supraclavicular region. Additional workup is recommended. Metastasi s should be considered. [facility], , 01/15/2025 8:43 PM
[2025-01-15] MEDS: MORPHINE SULFATE 4 MG/ML SYRINGE IV PRN (21:30)
[2025-01-15] MEDS: IPRATROPIUM-ALBUTEROL 3 ML NEB INHALATION PRN (22:14)
--- NOTE | 2025-01-15 22:49 | P.CONS ---
History of Present Illness - Reason for Consult Consult date: 01/15/25 metastatic disease Requesting physician: Heather Gaspar - Chief Complaint back pain - History of Present Illness Patient is a 64-year-old male who presented to the emergency room with complaints of right sided mid back pain over the last 2 weeks. Upon admit he is also reporting increasing shortness of breath. D-dimer elevated at 7.86. CTA chest was negative for PE. Showing diffuse osseous lesions. Enlarged paraesophageal lymph nodes. CT abdomen pelvis with contrast showing findings highly concerning for metastatic disease with multiple enlarged prominent lymph nodes and diffuse sclerotic osseous lesions. Colonic diverticulosis without evidence for acute diverticulitis. Labs reviewed, WBC 4.8, hemoglobin 14.8, platelets 160,000. Creatinine 0.64, GFR greater than 90. Bilirubin, AST, ALT WNL. ALP elevated at 378. Calcium normal at 9.0. Urinalysis negative for UTI and hematuria. Patient states he has lost some weight as his belt is looser but unknown how much weight he has lost. Denies night sweats. Denies personal history of cancer. History of 45 pack year smoker. He has not undergone colonoscopy in the past. Upon review of EMR last PSA in 2014 was 1.1. Review of Systems 10 point ROS is negative except as stated in the HPI Past Medical History Past Medical History: GERD/Reflux, Hypertension Additional Past Medical History / Comment(s): hiatal hernia History of Any Multi-Drug Resistant Organisms: None Reported Year Discovered:: 2014 MDRO Source:: leg Past Surgical History: Orthopedic Surgery Additional Past Surgical History / Comment(s): right ankle PINS, right knee DEBRIDMENT, left thumb, BABY FINGER RT HAND SX REPAIRED Past Anesthesia/Blood Transfusion Reactions: No Reported Reaction Additional Past Anesthesia/Blood Transfusion Reaction / Comm: VERTIGO Past Psychological History: Anxiety Additional Psychological History / Comment(s): TAKES XANAX Smoking Status: Current every day smoker Past Alcohol Use History: Daily Additional Past Alcohol Use History / Comment(s): 1 PPD- STARTED SMOKING AT AGE 17. DRINKS 6-8 BEERS PER NIGHT but states he quit 3 days ago Past Drug Use History: Marijuana - Past Family History Father Family Medical History: Cancer, Myocardial Infarction ([place]) Additional Family Medical History / Comment(s): BLADDER, CARDIAC STENTS THEN CABG Mother Family Medical History: Cancer Additional Family Medical History / Comment(s): HEART VALVE REPAIR, COLON CA Medications and Allergies Home Medications Medication Instructions Recorded Confirmed Type No Known Home Medications 01/15/25 01/15/25 History Allergies Allergy/AdvReac Type Severity Reaction Status Date / Time No Known Allergies Allergy Verified 01/15/25 11:44 Physical Exam Vitals: Vital Signs Temp Pulse Pulse Resp BP BP BP 01/15/25 14:17 157/86 01/15/25 13:38 97.6 F 68 20 173/101 01/15/25 08:00 97.6 F 69 20 171/95 01/15/25 02:00 97.6 F 64 18 139/83 01/15/25 01:05 97.9 F 71 18 153/92 01/14/25 22:00 136/73 01/14/25 21:49 72 01/14/25 21:28 70 01/14/25 20:59 68 18 153/86 01/14/25 19:35 97.7 F 152/96 Pulse Ox 01/15/25 14:17 01/15/25 13:38 98 01/15/25 08:00 99 01/15/25 02:00 96 01/15/25 01:05 97 01/14/25 22:00 01/14/25 21:49 01/14/25 21:28 01/14/25 20:59 98 01/14/25 19:35 Intake and Output 01/15/25 01/15/25 01/15/25 06:59 14:59 22:59 Other: Voiding Method Toilet Toilet # Voids 1 Weight 88.451 kg - Constitutional General appearance: average body habitus, no acute distress - EENT Eyes: anicteric sclerae, EOMI ENT: hearing grossly normal - Neck right anterior cervical LAD, approx 0.5cm Neck: lymphadenopathy - Respiratory Respiratory: bilateral: CTA - Cardiovascular Rhythm: regular - Gastrointestinal right groin, palpable LAD, approx 2cm General gastrointestinal: soft, no tenderness - Integumentary Integumentary: no cyanotic, no jaundiced - Neurologic Neurologic: CNII-XII intact - Psychiatric Psychiatric: A&O x's 3 Results CBC & Chem 7: 01/14/25 16:55 01/14/25 16:55 CT scan - abdomen: report reviewed CT scan - chest: report reviewed CT scan - pelvis: report reviewed Assessment and Plan (1) Bone lesion Current Visit: Yes Status: Acute Code(s): M89.9 - DISORDER OF BONE, UNSPECIFIED SNOMED Code(s): 964702444 (2) Intractable pain Current Visit: Yes Status: Acute Code(s): R52 - PAIN, UNSPECIFIED SNOMED Code(s): 92229822 (3) Lymph node enlargement Current Visit: Yes Status: Acute Code(s): R59.9 - ENLARGED LYMPH NODES, UNSPECIFIED SNOMED Code(s): 33403884 Plan: Lymphadenopathy, osseous lesions: Presented to the emergency room with complaints of right sided mid back pain over the last 2 weeks. Upon admit he is also reporting increasing shortness of breath. Patient states he has lost some weight as his belt is looser but unknown how much weight he has lost. Denies night sweats. Denies personal history of cancer. History of 45 pack year smoker. He has not undergone colonoscopy in the past. Upon review of EMR last PSA in 2014 was 1.1. -CTA chest was negative for PE. Showing diffuse osseous lesions. Enlarged paraesophageal lymph nodes. -CT abdomen pelvis with contrast showing findings highly concerning for metastatic disease with multiple enlarged prominent lymph nodes and diffuse sclerotic osseous lesions. -Palpable lymph nodes in right neck and right groin. Will obtain ultrasounds to evaluate for site for biopsy -Will also obtain PSA, LDH and myeloma labs Discussed findings and concerns for metastatic cancer. Pt agreeable to proceed with further workup. All questions and concerns were addressed
[2025-01-16] MEDS: ENOXAPARIN 40 MG/0.4 ML SYRINGE SQ SCH (09:38)
[2025-01-16] MEDS: NICOTINE 14MG/24HR PATCH TRANSDERM SCH (09:38)
[2025-01-16 10:09] LABS: Protein, Total 5.6 g/dL (6.2-8.2)
[2025-01-16 10:10] LABS: ALT 21 U/L (10-49); AST 61 U/L (14-35); Albumin 3.5 g/dL (3.8-4.9); Albumin/Globulin Ratio 1.84 Ratio (1.60-3.17); Alkaline Phosphatase 407 U/L (41-126); BUN/Creat Ratio 15.86 Ratio (12.00-20.00); Blood Urea Nitrogen 11.1 mg/dL (9.0-27.0); Calcium 8.3 mg/dL (8.7-10.3); Carbon Dioxide 22.6 mmol/L (21.6-31.8); Chloride 103 mmol/L (96-109); Globulin 1.9 g/dL (1.6-3.3); Glucose 104 mg/dL (70-110); LDH 470 U/L (120-246); Potassium 4.2 mmol/L (3.5-5.5); Sodium 136 mmol/L (135-145); Total Bilirubin 0.3 mg/dL (0.3-1.2); Total Protein 5.4 g/dL (6.2-8.2)
[2025-01-16 10:47] LABS: Basophils # (A) 0.03 X 10*3/uL (0.00-0.10); Basophils % (A) 0.6 %; Eosinophils # (A) 0.14 X 10*3/uL (0.04-0.35); Eosinophils % (A) 2.9 %; HCT 39.9 % (39.6-50.0); HGB 12.8 g/dL (13.0-17.0); Lymphocytes # (A) 1.52 X 10*3/uL (0.90-5.00); Lymphocytes % (A) 31.9 %; MCH 27.5 pg (27.0-32.0); MCHC 32.1 g/dL (32.0-37.0); MCV 85.6 FL (80.0-97.0); Mean Platelet Volume 11.9 FL (9.5-12.2); Monocytes # (A) 0.46 X 10*3/uL (0.20-1.00); Monocytes % (A) 9.7 %; NRBC Per 100 WBC 0 X 10*3/uL (0.00-0.01); Neutrophils # (A) 2.54 X 10*3/uL (1.80-7.70); Neutrophils % (A) 53.4 %; Platelet Count 140 X 10*3/uL (140-440); RBC 4.66 X 10*6/uL (4.40-5.60); RDW 12.7 % (11.5-14.5); WBC 4.76 X 10*3/uL (4.50-10.00)
--- NOTE | 2025-01-16 11:35 | P.PN ---
Subjective Progress Note Date: 01/16/25 Dewey Velasuqez is a 64-year-old male patient of Dr. Rabago who presented with complaints of intractable back pain ongoing for 3 months. Patient has a past medical history of GERD hypertension anxiety current everyday smoker 1 pack/day and drinks 6-7 8 beers per day. Upon arrival testing was done. Chest x-ray showing no acute cardiopulmonary disease or process. Patient was noted to have a significant elevated D-dimer so CTA was performed showing no evidence for pulmonary embolism but diffuse osseous lesions highly concerning for metastatic disease of unknown primary enlarged paraesophageal lymph nodes concerning for metastatic disease of unknown primary. Patient denies any history of cancer. Patient's family at bedside does report he has not followed up with a doctor in over a year and has had recent weight loss. Patient reports he does have a family history of father with bladder cancer and mother with colon cancer. CT of abdomen and pelvis completed showing findings highly concerning for metastatic disease from unknown primary malignancy with multiple enlarged prominent lymph nodes and diffuse sclerotic osseous lesions further recommendations colonic diverticulosis without evidence for acute diverticulitis. Lab work completed showing white blood cell 4.89, hemoglobin 14.8 D-dimer was elevated at 7.86 CTA was negative for PE, creatinine 0.64 bun 12 alkaline phosphatase 378. At this time patient will be admitted pain medication added along with Zofran for nausea. Oncology services consulted. Current vital signs temp 97.6, heart 64, respiratory rate 18, blood pressure 1 39/83 with a pulse ox of 96% on room air On 01/16/2025 patient was seen and examined on the medical floor he is alert and oriented x 3 in no apparent distress he is complaining of back pain otherwise he denies any complaints at this time there is no fever or chills no headache or dizziness no chest pain no shortness of breath no cough no nausea or vomiting no abdominal pain no diarrhea and no urinary symptoms. At this time we are awaiting further recommendation from oncology for diagnostic test regarding possible prostatic cancer. Objective - Vital Signs Vital signs: Vital Signs Temp 97.9 F 01/16/25 07:55 Pulse 71 01/16/25 07:55 Resp 16 01/16/25 07:55 BP 171/93 01/16/25 07:55 Pulse Ox 97 01/16/25 07:55 FiO2 Intake & Output 01/15/25 01/16/25 01/16/25 18:59 06:59 18:59 Other: Voiding Method Toilet Toilet # Voids 1 2 - Exam In general patient is alert and oriented x 3 in no apparent distress Head normocephalic and atraumatic Neck supple no JVD no goiter Lungs clear to auscultation bilaterally no wheezing or crackles Heart regular rate and rhythm S1-S2, no rub or gallop Abdomen is soft nontender nondistended positive bowel sounds no hepatosplenomegaly Extremities no edema Neuro alert and orientated to 3 no gross focal deficit - Labs CBC & Chem 7: 01/16/25 04:32 01/16/25 04:32 Assessment and Plan Assessment: 1. Intractable back pain 2. Osseous lesions concerning for metastatic disease 3. Ongoing nicotine dependence patient reports he smokes greater than a pack per day nicotine patch will be ordered patient educated greater than 3 minutes on the importance of complete smoking sensation 4. EtOH abuse patient reports he is drink 6-8 beers per day 5. History of GERD 6. History of essential hypertension 7. History of anxiety DVT prophylaxis Lovenox. GI prophylax Protonix Pain medication added Zofran added for nausea Oncology services added for further workup Plan: 1. Intractable back pain 2. Osseous lesions concerning for metastatic disease 3. Ongoing nicotine dependence patient reports he smokes greater than a pack per day nicotine patch will be ordered patient educated greater than 3 minutes on the importance of complete smoking sensation 4. EtOH abuse patient reports he is drink 6-8 beers per day 5. History of GERD 6. History of essential hypertension 7. History of anxiety DVT prophylaxis Lovenox. GI prophylax Protonix Pain medication added Zofran added for nausea Oncology services added for further workup
[2025-01-16] MEDS ORDERED: SENNOSIDES 8.6 MG TAB PO PRN (12:14)
--- NOTE | 2025-01-16 12:29 | P.PN ---
Subjective Progress Note Date: 01/16/25 Principal diagnosis: Lymphadenopathy - Afebrile, no acute events overnight - Ultrasound of the head and neck noted 2.8 cm right supraclavicular lymph node with ultrasound of the groin revealing 2.8 cm right inguinal lymph node - Clinically, he notes having increased discomfort in the right arm following physical exam evaluation for lymphadenopathy. He continues to have discomfort in the bilateral rib cages and mid back - He does note anxiety from being in the hospital and does have Ativan ordered as needed Objective - Vital Signs Vital signs: Vital Signs Temp 97.9 F 01/16/25 07:55 Pulse 76 01/16/25 11:37 Resp 16 01/16/25 08:00 BP 171/93 01/16/25 07:55 Pulse Ox 97 01/16/25 07:55 FiO2 Intake & Output 01/15/25 01/16/25 01/16/25 18:59 06:59 18:59 Intake Total 240 Balance 240 Intake: Oral 240 Other: Voiding Method Toilet Toilet Toilet # Voids 1 2 - Constitutional Constitutional Comment(s): Anxious General appearance: Present: cooperative - EENT Eyes: Present: EOMI - Respiratory Details: Nonlabored breathing Respiratory: left: wheezing (Mild expiratory wheeze in the left upper lung field) - Cardiovascular Details: Warm and well-perfused - Gastrointestinal General gastrointestinal: Present: soft. Absent: distended - Integumentary Integumentary: Absent: rash - Neurologic Neurologic: Present: CNII-XII intact. Absent: focal deficits - Labs CBC & Chem 7: 01/16/25 04:32 01/16/25 04:32 Labs: Abnormal Lab Results - Last 24 Hours (Table) 01/16/25 01/16/25 01/16/25 Range/Units 04:32 04:32 04:32 Hgb 12.8 L (13.0-17.0) g/dL Immature Gran # 0.07 H (0.00-0.04) X 10*3/uL Calcium 8.3 L (8.7-10.3) mg/dL AST 61 H (14-35) U/L Alkaline Phosphatase 407 H (41-126) U/L Lactate Dehydrogenase 470 H (120-246) U/L Total Protein 5.4 L (6.2-8.2) g/dL Total Protein (PEP) 5.6 L (6.2-8.2) g/dL Albumin 3.5 L (3.8-4.9) g/dL Assessment and Plan (1) Intractable pain Current Visit: Yes Status: Acute Code(s): R52 - PAIN, UNSPECIFIED SNOMED Code(s): 50902332 (2) Lymph node enlargement Current Visit: Yes Status: Acute Code(s): R59.9 - ENLARGED LYMPH NODES, UNSPECIFIED SNOMED Code(s): 33552131 (3) Metastatic disease Current Visit: Yes Status: Acute Code(s): C79.9 - SECONDARY MALIGNANT N EOPLASM OF UNSPECIFIED SITE SNOMED Code(s): 336386634 (4) Neoplasm of bone Current Visit: Yes Status: Acute Code(s): D49.2 - NEOPLASM OF UNSP BEHAVIOR OF BONE, SOFT TISSUE, AND SKIN SNOMED Code(s): 785015392 Plan: Lymphadenopathy, osseous lesions: Presented to the emergency room with complaints of right sided mid back pain over the last 2 weeks. Upon admit he is also reporting increasing shortness of breath. Patient states he has lost some weight as his belt is looser but unknown how much weight he has lost. Denies night sweats. Denies personal history of cancer. History of 45 pack year smoker. He has not undergone colonoscopy in the past. Upon review of EMR last PSA in 2014 was 1.1. -CTA chest was negative for PE. Showing diffuse osseous lesions. Enlarged paraesophageal lymph nodes. -CT abdomen pelvis with contrast showing findings highly concerning for metastatic disease with multiple enlarged prominent lymph nodes and diffuse sclerotic osseous lesions -Ultrasounds of the head/neck and inguinal regions revealed right supraclavicular and right inguinal lymphadenopathy measuring 2.8 cm -Differential diagnosis remains broad including primary carcinoma of lung or prostate, lymphoma, and less likely multiple myeloma -Lab workup obtained on admission including PSA, LDH, and monoclonal gammopathy labs assessing for multiple myeloma are pending -Recommend core needle biopsy of either the right supraclavicular or right inguinal lymph node with interventional radiology. Order placed today Intractable pain: -Secondary to sclerotic osseous lesions noted on exam -Morphine 15 mg extended release twice daily as well as morphine immediate release 15 mg every 4 hours as needed added today. [place] was discontinued per patient preference -Sennosides 8.6 mg twice daily as needed for constipation was also added Simon Vazquez MD
[2025-01-16] MEDS: MORPHINE SULFATE ER 15 MG TABLET PO SCH (12:47)
[2025-01-16] MEDS: LORazepam 1 MG TAB PO PRN (12:48)
[2025-01-16] MEDS: MORPHINE SULFATE IR 15 MG TABLET PO PRN (16:43)
[2025-01-17] MEDS: CALCIUM CARBONATE 500 MG CHEWABLE PO PRN (01:39)
[2025-01-17] MEDS: THIAMINE 100 MG TAB PO SCH (08:50)
--- NOTE | 2025-01-17 09:51 | P.PN ---
Subjective Progress Note Date: 01/17/25 Dewey Velasquez is a 64-year-old male patient of Dr. Rabago who presented with complaints of intractable back pain ongoing for 3 months. Patient has a past medical history of GERD hypertension anxiety current everyday smoker 1 pack/day and drinks 6-7 8 beers per day. Upon arrival testing was done. Chest x-ray showing no acute cardiopulmonary disease or process. Patient was noted to have a significant elevated D-dimer so CTA was performed showing no evidence for pulmonary embolism but diffuse osseous lesions highly concerning for metastatic disease of unknown primary enlarged paraesophageal lymph nodes concerning for metastatic disease of unknown primary. Patient denies any history of cancer. Patient's family at bedside does report he has not followed up with a doctor in over a year and has had recent weight loss. Patient reports he does have a family history of father with bladder cancer and mother with colon cancer. CT of abdomen and pelvis completed showing findings highly concerning for metastatic disease from unknown primary malignancy with multiple enlarged prominent lymph nodes and diffuse sclerotic osseous lesions further recommendations colonic diverticulosis without evidence for acute diverticulitis. Lab work completed showing white blood cell 4.89, hemoglobin 14.8 D-dimer was elevated at 7.86 CTA was negative for PE, creatinine 0.64 bun 12 alkaline phosphatase 378. At this time patient will be admitted pain medication added along with Zofran for nausea. Oncology services consulted. Current vital signs temp 97.6, heart 64, respiratory rate 18, blood pressure 1 39/83 with a pulse ox of 96% on room air On 01/16/2025 patient was seen and examined on the medical floor he is alert and oriented x 3 in no apparent distress he is complaining of back pain otherwise he denies any complaints at this time there is no fever or chills no headache or dizziness no chest pain no shortness of breath no cough no nausea or vomiting no abdominal pain no diarrhea and no urinary symptoms. At this time we are awaiting further recommendation from oncology for diagnostic test regarding possible prostatic cancer. On 01/17/2025 patient is alert and oriented x 3. Patient is currently resting comfortably in bed pain meds have been adjusted per oncology services to include MS Contin. IR services have been consulted for biopsy of lymph node. Current vital signs temp 97.6, heart 64, respiratory rate 16, blood pressure 138/82 with pulse ox of 97% on room air. Patient denies chest pain or shortness of breath. Patient denies nausea vomiting or diarrhea. Patient denies any urinary burning or frequency Objective - Vital Signs Vital signs: Vital Signs Temp 97.6 F 01/17/25 07:06 Pulse 64 01/17/25 08:40 Resp 16 01/17/25 08:40 BP 138/82 01/17/25 07:06 Pulse Ox 97 01/17/25 07:06 FiO2 Intake & Output 01/16/25 01/17/25 01/17/25 18:59 06:59 18:59 Intake Total 1979 240 Balance 1979 240 Intake: Oral 1979 Other: Voiding Method Toilet Toilet Toilet # Voids 5 2 - Exam In general patient is alert and oriented x 3 in no apparent distress Head normocephalic and atraumatic Neck supple no JVD no goiter Lungs clear to auscultation bilaterally no wheezing or crackles Heart regular rate and rhythm S1-S2, no rub or gallop Abdomen is soft nontender nondistended positive bowel sounds no hepatosplenomegaly Extremities no edema Neuro alert and orientated to 3 no gross focal deficit - Labs CBC & Chem 7: 01/16/25 04:32 01/16/25 04:32 Labs: Abnormal Lab Results - Last 24 Hours (Table) 01/16/25 01/16/25 01/16/25 Range/Units 04:32 04:32 04:32 Hgb 12.8 L (13.0-17.0) g/dL Immature Gran # 0.07 H (0.00-0.04) X 10*3/uL Calcium 8.3 L (8.7-10.3) mg/dL AST 61 H (14-35) U/L Alkaline Phosphatase 407 H (41-126) U/L Lactate Dehydrogenase 470 H (120-246) U/L Total Protein 5.4 L (6.2-8.2) g/dL Total Protein (PEP) 5.6 L (6.2-8.2) g/dL Albumin 3.5 L (3.8-4.9) g/dL Assessment and Plan Assessment: 1. Intractable back pain 2. Osseous lesions concerning for metastatic disease 3. Ongoing nicotine dependence patient reports he smokes greater than a pack per day nicotine patch will be ordered patient educated greater than 3 minutes on the importance of complete smoking sensation 4. EtOH abuse patient reports he is drink 6-8 beers per day 5. History of GERD 6. History of essential hypertension 7. History of anxiety DVT prophylaxis Lovenox. GI prophylax Protonix Pain medication added Zofran added for nausea Oncology services added for further workup
[2025-01-17 10:08] LABS: Basophils # (A) 0.04 X 10*3/uL (0.00-0.10); Basophils % (A) 0.8 %; Eosinophils # (A) 0.08 X 10*3/uL (0.04-0.35); Eosinophils % (A) 1.6 %; HCT 42.1 % (39.6-50.0); HGB 13.9 g/dL (13.0-17.0); Lymphocytes # (A) 1.34 X 10*3/uL (0.90-5.00); Lymphocytes % (A) 27.3 %; MCH 28.5 pg (27.0-32.0); MCV 86.4 FL (80.0-97.0); Mean Platelet Volume 11.9 FL (9.5-12.2); Monocytes # (A) 0.64 X 10*3/uL (0.20-1.00); Monocytes % (A) 13.1 %; NRBC Per 100 WBC 0 X 10*3/uL (0.00-0.01); Neutrophils # (A) 2.74 X 10*3/uL (1.80-7.70); Platelet Count 138 X 10*3/uL (140-440); RBC 4.87 X 10*6/uL (4.40-5.60); RDW 12.6 % (11.5-14.5)
[2025-01-17 10:17] LABS: ALT 24 U/L (10-49); AST 64 U/L (14-35); Albumin 3.6 g/dL (3.8-4.9); Albumin/Globulin Ratio 1.71 Ratio (1.60-3.17); Alkaline Phosphatase 458 U/L (41-126); BUN/Creat Ratio 15.71 Ratio (12.00-20.00); Calcium 8.5 mg/dL (8.7-10.3); Chloride 102 mmol/L (96-109); Globulin 2.1 g/dL (1.6-3.3); Glucose 106 mg/dL (70-110); Potassium 4.5 mmol/L (3.5-5.5); Sodium 137 mmol/L (135-145); Total Bilirubin 0.4 mg/dL (0.3-1.2); Total Protein 5.7 g/dL (6.2-8.2)
[2025-01-17] MEDS: LORazepam 1 MG/0.5 ML VIAL IV PRN (20:25)
[2025-01-18 08:09] VITALS: RESP 18
[2025-01-18] MEDS: LORazepam 0.5 MG TAB PO PRN (08:22)
[2025-01-18] MEDS: HYDROcodone/APAP 5-325MG 1 EACH TAB PO PRN (10:09)
[2025-01-18 10:27] LABS: ALT 28 U/L (10-49); AST 60 U/L (14-35); Albumin 3.6 g/dL (3.8-4.9); Albumin/Globulin Ratio 1.89 Ratio (1.60-3.17); Alkaline Phosphatase 478 U/L (41-126); BUN/Creat Ratio 17.43 Ratio (12.00-20.00); Blood Urea Nitrogen 12.2 mg/dL (9.0-27.0); Calcium 8.6 mg/dL (8.7-10.3); Carbon Dioxide 23.9 mmol/L (21.6-31.8); Chloride 100 mmol/L (96-109); Globulin 1.9 g/dL (1.6-3.3); Glucose 98 mg/dL (70-110); Potassium 4.1 mmol/L (3.5-5.5); Sodium 135 mmol/L (135-145); Total Bilirubin 0.6 mg/dL (0.3-1.2); Total Protein 5.5 g/dL (6.2-8.2)
[2025-01-18 10:59] LABS: HCT 42.2 % (39.6-50.0); HGB 13.7 g/dL (13.0-17.0); MCH 28.1 pg (27.0-32.0); MCHC 32.5 g/dL (32.0-37.0); MCV 86.5 FL (80.0-97.0); Platelet Count 148 X 10*3/uL (140-440); RBC 4.88 X 10*6/uL (4.40-5.60); RDW 12.7 % (11.5-14.5); WBC 5.42 X 10*3/uL (4.50-10.00)
[2025-01-18 11:00] LABS: Basophils # (A) 0.03 X 10*3/uL (0.00-0.10); Basophils % (A) 0.6 %; Eosinophils % (A) 1.8 %; Lymphocytes # (A) 1.15 X 10*3/uL (0.90-5.00); Lymphocytes % (A) 21.2 %; Mean Platelet Volume 12.3 FL (9.5-12.2); Monocytes # (A) 0.75 X 10*3/uL (0.20-1.00); Monocytes % (A) 13.8 %; NRBC Per 100 WBC 0 X 10*3/uL (0.00-0.01); Neutrophils # (A) 3.33 X 10*3/uL (1.80-7.70); Neutrophils % (A) 61.5 %
[2025-01-18] MEDS: SENNOSIDES-DOCUSATE SODIUM 1 EACH TAB PO SCH (12:23)
--- NOTE | 2025-01-18 12:58 | US ---
EXAMINATION TYPE: US axilla RT DATE OF EXAM: 01/18/2025 COMPARISON: NONE CLINICAL INDICATION: Male, 64 years old with history of fullness to medial right axilla, eval for bio psy; fullness of axilla. TECHNIQUE: Right axilla scanned FINDINGS AND IMPRESSION: Normal appearing lymph nodes visualized. Largest measures 3.2 x 1.0 x 0.9cm with a cortex of 1.7 mm. No abnormal solid or cystic lesion is seen. [facility], , 01/18/2025 12:56 PM
[2025-01-18 13:16] VITALS: BP 122/77; PULSE 80; TEMP 97.4
--- NOTE | 2025-01-18 13:51 | P.PN ---
Subjective Progress Note Date: 01/18/25 No acute events overnight. Pt reporting right axilla pain, with decreased ROM of RUE. Spoke with IR unable to perform biopsy of right supraclavicular and right groin lymph nodes Also reporting no BM in the last 3 days Objective - Vital Signs Vital signs: Vital Signs Temp 98.2 F 01/18/25 08:00 Pulse 64 01/18/25 08:00 Resp 18 01/18/25 08:00 BP 158/95 01/18/25 08:00 Pulse Ox 97 01/18/25 08:00 FiO2 Intake & Output 01/17/25 01/18/25 01/18/25 18:59 06:59 18:59 Intake Total 1800 540 Balance 1800 540 Intake: Oral 1800 540 Other: Voiding Method Toilet Toilet Toilet # Voids 6 3 - Constitutional General appearance: Present: average body habitus, no acute distress - EENT Eyes: Present: anicteric sclerae, edentulous ENT: Present: hearing grossly normal - Respiratory Details: breathing is even and unlabored - Cardiovascular Details: skin warm and dry - Gastrointestinal General gastrointestinal: Present: soft. Absent: tenderness - Integumentary Integumentary: Absent: cyanotic, jaundiced - Neurologic Neurologic: Present: CNII-XII intact - Musculoskeletal Musculoskeletal: Present: strength equal bilaterally - Psychiatric Psychiatric: Present: A&O x's 3 - Labs CBC & Chem 7: 01/18/25 04:20 01/18/25 04:20 Labs: Abnormal Lab Results - Last 24 Hours (Table) 01/18/25 01/18/25 Range/Units 04:20 04:20 MPV 12.3 H (9.5-12.2) FL Immature Gran # 0.06 H (0.00-0.04) X 10*3/uL Calcium 8.6 L (8.7-10.3) mg/dL AST 60 H (14-35) U/L Alkaline Phosphatase 478 H (41-126) U/L Total Protein 5.5 L (6.2-8.2) g/dL Albumin 3.6 L (3.8-4.9) g/dL Assessment and Plan (1) Bone lesion Current Visit: Yes Status: Acute Code(s): M89.9 - DISORDER OF BONE, UNSPECIFIED SNOMED Code(s): 904126792 (2) Intractable pain Current Visit: Yes Status: Acute Code(s): R52 - PAIN, UNSPECIFIED SNOMED Code(s): 41925307 (3) Lymph node enlargement Current Visit: Yes Status: Acute Code(s): R59.9 - ENLARGED LYMPH NODES, UNSPECIFIED SNOMED Code(s): 20534325 Plan: Lymphadenopathy, osseous lesions: Presented to the emergency room with complaints of right sided mid back pain over the last 2 weeks. Upon admit he is also reporting increasing shortness of breath. Patient states he has lost some weight as his belt is looser but unknown how much weight he has lost. Denies night sweats. Denies personal history of cancer. History of 45 pack year smoker. He has not undergone colonos copy in the past. Upon review of EMR last PSA in 2014 was 1.1. -CTA chest was negative for PE. Showing diffuse osseous lesions. Enlarged paraesophageal lymph nodes. -CT abdomen pelvis with contrast showing findings highly concerning for metastatic disease with multiple enlarged prominent lymph nodes and diffuse sclerotic osseous lesions -Ultrasounds of the head/neck and inguinal regions revealed right supraclavicular and right inguinal lymphadenopathy measuring 2.8 cm -Differential diagnosis remains broad including primary carcinoma of lung or prostate, lymphoma, and less likely multiple myeloma -Lab workup obtained on admission including PSA, LDH, and monoclonal gammopathy labs assessing for multiple myeloma. LDH elevated at 470, remaining workup pending -Recommend core needle biopsy of either the right supraclavicular or right inguinal lymph node with interventional radiology. Spoke with IR, reporting unable to obtain lymph node biopsy of those sites. -Fullness noted in right axilla, will obtain US for further evaluation Intractable pain: -Secondary to sclerotic osseous lesions noted on exam -Morphine 15 mg extended release twice daily as well as morphine immediate relea se 15 mg every 4 hours as needed added today. -Reporting nausea with morphine. Needham was added, reporting pain controlled with the Needham -Bowel regimen in place
--- NOTE | 2025-01-18 16:27 | P.DS ---
Providers Date of admission: 01/15/25 00:05 Expected date of discharge: 01/18/25 Attending physician: Melvina Beard Consults: 01/14/25 21:09 Consult Physician Urgent Consulting Provider: eMño Bermudez Consult Reason/Comments: Metastatic disease of unknown origin on CT scan Do you want consulting provider notified?: Yes Primary care physician: Jenna Gooden Hospital Course: Diagnosis on discharge: 1. Intractable back pain 2. Osseous lesions concerning for metastatic disease 3. Ongoing nicotine dependence patient reports he smokes greater than a pack per day nicotine patch will be ordered patient educated greater than 3 minutes on the importance of complete smoking sensation 4. EtOH abuse patient reports he is drink 6-8 beers per day 5. History of GERD 6. History of essential hypertension 7. History of anxiety Hospital course: Dewey Velasquez is a 64-year-old male patient of Dr. Rabago who presented with complaints of intractable back pain ongoing for 3 months. Patient has a past medical history of GERD hypertension anxiety current everyday smoker 1 pack/day and drinks 6-7 8 beers per day. Upon arrival testing was done. Chest x-ray showing no acute cardiopulmonary disease or process. Patient was noted to have a significant elevated D-dimer so CTA was performed showing no evidence for pulmonary embolism but diffuse osseous lesions highly concerning for metastatic disease of unknown primary enlarged paraesophageal lymph nodes concerning for metastatic disease of unknown primary. Patient denies any history of cancer. Patient's family at bedside does report he has not followed up with a doctor in over a year and has had recent weight loss. Patient reports he does have a family history of father with bladder cancer and mother with colon cancer. CT of abdomen and pelvis completed showing findings highly concerning for metastatic disease from unknown primary malignancy with multiple enlarged prominent lymph nodes and diffuse sclerotic osseous lesions further recommendations colonic diverticulosis without evidence for acute diverticulitis. Lab work completed showing white blood cell 4.89, hemoglobin 14.8 D-dimer was elevated at 7.86 CTA was negative for PE, creatinine 0.64 bun 12 alkaline phosphatase 378. At this time patient will be admitted pain medication added along with Zofran for nausea. Oncology services consulted. Current vital signs temp 97.6, heart 64, respiratory rate 18, blood pressure 139/83 with a pulse ox of 96% on room air On 01/16/2025 patient was seen and examined on the medical floor he is alert and oriented x 3 in no apparent distress he is complaining of back pain otherwise he denies any complaints at this time there is no fever or chills no headache or dizziness no chest pain no shortness of breath no cough no nausea or vomiting no abdominal pain no diarrhea and no urinary symptoms. At this time we are awaiting further recommendation from oncology for diagnostic test regarding possible prostatic cancer. On 01/17/2025 patient is alert and oriented x 3. Patient is currently resting comfortably in bed pain meds have been adjusted per oncology services to include MS Contin. IR services have been consulted for biopsy of lymph node. Current vital signs temp 97.6, heart 64, respiratory rate 16, blood pressure 138/82 with pulse ox of 97% on room air. Patient denies chest pain or shortness of breath. Patient denies nausea vomiting or diarrhea. Patient denies any urinary burning or frequency On 01/18/2025 patient was seen and examined on the medical floor he is alert and oriented x 3 in no apparent distress his pain is better controlled there is no fever or chills no headache headache or dizziness no chest pain no shortness of breath no cough no nausea no vomiting no abdominal pain no diarrhea and no urinary symptoms. He was reevaluated by oncology today, per oncology and interventional radiology, no plans for lymph node biopsy at this time, patient was cleared for discharge, follow-up as outpatient with primary care physician and with oncology, plan is to proceed with a PET scan as outpatient and further evaluation by oncology. Plan - Discharge Summary Discharge Rx Participant: No New Discharge Prescriptions: New traZODone HCL [Desyrel] 50 mg PO HS 30 Days #30 tab HYDROcodone/APAP 10-325MG [[place] 10-325] 1 tab PO Q6HR PRN 3 Days #12 tab PRN Reason: Pain Thiamine [Vitamin B-1] 100 mg PO DAILY 30 Days #30 tab Ipratropium-Albuterol Nebulize [Duoneb 0.5 mg-3 mg/3 ml Soln] 3 ml INHALATION RT-QID PRN 30 Days #120 each PRN Reason: Shortness Of Breath Or Wheezing Nicotine 14Mg/24Hr Patch [Habitrol] 1 patch TRANSDERM DAILY 30 Days #30 patch Sennosides-Docusate Sodium [Senokot-S] 2 each PO BID 30 Days #120 tab Discharge Medication List HYDROcodone/APAP 10-325MG [[place] 10-325] 1 tab PO Q6HR PRN 3 Days #12 tab 01/18/25 [Rx] Ipratropium-Albuterol Nebulize [Duoneb 0.5 mg-3 mg/3 ml Soln] 3 ml INHALATION RT-QID PRN 30 Days #120 each 01/18/25 [Rx] Nicotine 14Mg/24Hr Patch [Habitrol] 1 patch TRANSDERM DAILY 30 Days #30 patch 01/18/25 [Rx] Sennosides-Docusate Sodium [Senokot-S] 2 each PO BID 30 Days #120 tab 01/18/25 [Rx] Thiamine [Vitamin B-1] 100 mg PO DAILY 30 Days #30 tab 01/18/25 [Rx] traZODone HCL [Desyrel] 50 mg PO HS 30 Days #30 tab 01/18/25 [Rx] Follow up Appointment(s)/Referral(s): Jenna Gooden MD [Primary Care Provider] - 1-2 days
[2025-01-19 08:27] LABS: Albumin 3.04 g/dL (3.80-4.90); Gamma Globulin 0.59 g/dL (0.70-1.50)
== END 2025-01-18 17:07 | disposition home or self-care (01) | DRG 861 ==
LOC: EC 15:39 → 5NMEDONC 01-15 00:04 → OBSVTOIN 01-15 00:05 → 5NMEDONC 01-15 00:20
PROVIDERS: ADMIT Internal Medicine; ATTEND Internal Medicine
DX: G89.3 Neoplasm related pain (acute) (chronic) (principal); C79.51 Secondary malignant neoplasm of bone; C77.0 Secondary and unspecified malignant neoplasm of lymph nodes of head, face and neck; C77.5 Secondary and unspecified malignant neoplasm of intrapelvic lymph nodes; M54.6 Pain in thoracic spine; K44.9 Diaphragmatic hernia without obstruction or gangrene; R79.89 Other specified abnormal findings of blood chemistry; K21.9 Gastro-esophageal reflux disease without esophagitis; R63.4 Abnormal weight loss; F10.10 Alcohol abuse, uncomplicated; F17.210 Nicotine dependence, cigarettes, uncomplicated; F41.9 Anxiety disorder, unspecified; I10 Essential (primary) hypertension; K57.30 Diverticulosis of large intestine without perforation or abscess without bleeding; Z87.442 Personal history of urinary calculi; Z28.21 Immunization not carried out because of patient refusal; Z86.14 Personal history of Methicillin resistant Staphylococcus aureus infection; Z79.899 Other long term (current) drug therapy; Z68.27 Body mass index [BMI] 27.0-27.9, adult
CPT/HCPCS: 36415; 71046; 71275; 74177; 76536; 80053; 81003; 82784; 83615; 83735; 83883; 84153; 84165; 84484; 85025; 85379; 85610; 85730; 86334; 93005; 94640; 96361; 96374; 96375; 99285

== ENCOUNTER → 2025-02-04 | Outpatient (CLI) | payer OTHER ==
--- NOTE | 2025-02-04 11:32 | US ---
EXAMINATION TYPE: US venous doppler duplex LE LT DATE OF EXAM: 02/04/2025 11:23 AM COMPARISON: CT abdomen and pelvis 01/14/2025 CLINICAL INDICATION: Male, 64 years old with history of R22.42 SWELL MASS LUMP LLE; Swelling of left leg, new cancer diagnosis, unsure of origin TECHNIQUE: The lower extremity deep venous system is examined utilizing real time linear array sonog robin with graded compression, color doppler sonography, and spectral doppler. SIDE PERFORMED: Left FINDINGS: VESSELS IMAGED: Common Femoral Vein Deep Femoral Vein Greater Saphenous Vein * Femoral Vein Popliteal Vein Small Saphenous Vein * Proximal Calf Veins (* superficial vessels) Left Leg: Negative for DVT, Color Doppler imaging shows patency of the vessels. Spectral waveforms a re within normal limits. Rounded hypoechoic lymph node seen superior to CFV/GSV junction = 1.3 x 1.1 x 1.4 cm IMPRESSION: 1. No evidence of deep vein thrombosis of the left lower extremity. 2. Nonspecific round prominent lymph node within the left groin. Morphology and recent diagnosis of c ancer raises concern for metastasis. [facility], , 02/04/2025 11:30 AM
== END | disposition home or self-care (01) ==
LOC: RADUSWWP 10:58
PROVIDERS: ATTEND Internal Medicine Hematology & Oncology
DX: R22.42 Localized swelling, mass and lump, left lower limb (principal); F41.9 Anxiety disorder, unspecified; Z71.3 Dietary counseling and surveillance

== ENCOUNTER → 2025-02-12 | Outpatient (CLI) | payer OTHER ==
--- NOTE | 2025-02-14 07:47 | PE ---
EXAMINATION TYPE: PET CT fusion skull to thigh DATE OF EXAM: 02/12/2025 CLINICAL INDICATION:Male, 64 years old with history of C61 MALIGNANT NEOPLASM OF PROSTATE; TECHNIQUE: Following the intravenous administration of 6.23 mCi of Ga-68 Illuccix (PSMA), whole bod y images are performed from the skull base to the midthigh. Images are reviewed on the computer in t he coronal, axial, and sagittal planes. Reconstructed rotating images are created on independent wor kstation and reviewed on the computer. A non-contrast CT is performed in conjunction with the PET s can. CT DLP: 1000 mGycm, Automated exposure control for dose reduction was used. COMPARISON: CT 01/14/2025, PET/CT None, MRI: None FINDINGS: Mediastinal SUV mean is 1. Hepatic parenchyma SUV mean is 4.7. SKULL BASE AND NECK: Bilateral prominent and enlarged lymph nodes demonstrating radiotracer activity. Largest is on the ri ght measuring 1.5 cm with a maximum SUV of 7.2. CHEST, MEDIASTINUM, AND HILAR REGION: Nonenlarged bilateral hilar and mediastinal lymph nodes with radiotracer activity. A right paratrache al lymph node demonstrates a maximum SUV of 4.2. A right hilar lymph node that demonstrates a max SUV of 3.9. A left hilar left and demonstrates a maximum SUV of 2.6. ABDOMEN AND PELVIS: Enlarged right perirectal lymph node measuring up to 1.2 cm. Demonstrates a maximum SUV of 3.8. Addit ional smaller avid perirectal lymph nodes. Enlarged left external iliac chain lymph node measuring 1.1 cm short axis with a max SUV of 6.6. Prominent left common femoral chain lymph node measuring 0.8 cm short axis with a maximum SUV of 6.2. Enlarged left periaortic lymph nodes with largest measuring up to 1.4 cm with a maximum SUV of 6.9. A dditional smaller aortocaval lymph nodes with radiotracer activity. Enlarged paraesophageal lymph nodes with the largest on the right measuring 1.7 cm with a maximum SUV of 6.6. Heterogenous low level radiotracer uptake within the prostate gland. Demonstrates a maximum SUV of 4. 4. MUSCULOSKELETAL STRUCTURES: Innumerable sclerotic osseous lesions. These involve the spine, pelvic bones, bilateral femurs, bilat eral ribs, sternum, bilateral scapula, bilateral humeri, bilateral clavicles, clivus, bilateral shital bular condyles, and the greater wings of the sphenoids. Examples include sternal lesion with a max SUV 16.1. Right humeral head lesion with a max SUV 13.6. Clival lesion with a max SUV of 14.0. C3 vertebral body lesion with a maximum SUV of 12.3. T7 vertebral body lesion with a maximum SUV of 15.7. L3 vertebral body lesion with a maximum SUV of 19.2. Central sacral lesion with a maximum SUV of 22.8. Right femoral neck lesion with a max SUV of 12.3. OTHER CT: Bilateral carotid bulb calcifications. Atherosclerotic calcification of the aorta and its b ranches. Mild coronary arterial calcifications. Prominent bilateral extrarenal pelvises. Remote fract ure deformity of the left mid clavicle. Grade 2 anterolisthesis of L5 on S1 with bilateral pars defec ts. Multilevel degenerative disc disease. IMPRESSION: Low-level heterogenous radiotracer uptake within the prostate gland. Extensive sclerotic osseous meta stasis with radiotracer uptake most consistent with prostate metastasis. Additional scattered adenopa thy with radiotracer activity consistent with metastatic lymphadenopathy. [facility], , 02/14/2025 7:45 AM
== END | disposition home or self-care (01) ==
LOC: RADPETMAIN 15:28
PROVIDERS: ATTEND Internal Medicine Hematology & Oncology
DX: C61 Malignant neoplasm of prostate (principal); C79.51 Secondary malignant neoplasm of bone; R59.9 Enlarged lymph nodes, unspecified
CPT/HCPCS: 78815; A9596